=== PATIENT | female | born 1955 | race Caucasian/White ===

== ENCOUNTER 2024-11-11 09:14 | Observation (INO) | payer MEDICARE ==
[2024-11-11] VITALS (11 sets, daily range): BP systolic 123–138; BP diastolic 59–73; PULSE 70–85; RESP 17–18; TEMP 96.8–98.5; O2SAT 99–100
[~2024-11-11] VITALS: Ht 160 cm; Wt 72.1 kg
[2024-11-11 09:35] LABS: BASOPHILS % 0.4 % (0.0-1.0); EOSINOPHILS # (AUTO) 0.2 (0.0-0.4); EOSINOPHILS % 2.9 % (0.0-6.0); HEMATOCRIT 32.1 % (34.2-44.1); HEMOGLOBIN 9.2 g/dL (12.0-16.0); LYMPHOCYTES # (AUTO) 1.2 (1.0-3.2); LYMPHOCYTES % 16.5 % (18.0-39.1); MEAN CORPUSCULAR HEMOGLOBIN 25.7 pg (28-32); MEAN CORPUSCULAR HGB CONC 28.7 g/dL (31-35); MEAN CORPUSCULAR VOLUME 89.7 fL (81-99); MONOCYTES # (AUTO) 0.5 (0.2-0.8); MONOCYTES % 7.5 % (4.4-11.3); NEUTROPHILS # (AUTO) 5.2 (2.1-6.9); NEUTROPHILS % 72.6 % (38.7-80.0); PLATELET COUNT 298 x10e3/uL (140-360); RED BLOOD COUNT 3.58 x10e6/uL (3.6-5.1); RED CELL DISTRIBUTION WIDTH 15.8 % (11.7-14.4); WHITE BLOOD COUNT 7.16 x10e3/uL (4.8-10.8)
[2024-11-11] MEDS: SODIUM CHLORIDE 0.9% 1000ML 1,000 ML IV STA (09:52)
[2024-11-11] MEDS: METOPROLOL TARTRATE 25 MG TAB PO ONE (09:52)
[2024-11-11] MEDS: ASPIRIN 81 MG CHEW TAB PO STA (09:52)
[2024-11-11 09:57] LABS: ALBUMIN 3.8 g/dL (3.5-5.0); ALBUMIN/GLOBULIN RATIO 1.3 (0.8-2.0); BILIRUBIN,TOTAL 0.5 mg/dL (0.2-1.2); CALCIUM 9.2 mg/dL (8.4-10.2); CREATININE, SERUM 0.98 mg/dL (0.57-1.11); TOTAL PROTEIN 6.8 g/dL (6.5-8.1)
[2024-11-11 10:09] LABS: INR 0.95; PARTIAL THROMBOPLASTIN TIME 27.3 seconds (23.8-35.5); PROTHROMBIN TIME 13.3 seconds (11.9-14.5)
[2024-11-11 10:16] LABS: THYROID STIMULATING HORMONE 1.35 uIU/mL (0.350-4.940); TROPONIN I 0.002 ng/mL (0-0.300)
[2024-11-11] MEDS ORDERED: IOPAMIDOL 370 MG/ML 100 ML INFUS..BTL INJ ONE (10:31)
[2024-11-11] MEDS ORDERED: SODIUM CHLORIDE 0.9% 100 ML ONE (10:31)
[2024-11-11] MEDS ORDERED: Morphine 2mg Syringe 2 MG/ML SYR IV PRN (11:15)
[2024-11-11] MEDS ORDERED: ONDANSETRON HCL INJ 2MG/ML 2ML 2 MG/ML VIAL IV PRN (11:15)
[2024-11-11] MEDS ORDERED: NITROGLYCERIN 0.4 MG SUBL SL PRN (11:15)
[2024-11-11] MEDS ORDERED: LABETALOL HCL 5 MG/ML 20ML VIAL IV PRN (12:00)
[2024-11-11] MEDS ORDERED: ACETAMINOPHEN 325 MG TAB PO PRN (12:00)
[2024-11-11] MEDS ORDERED: POLYETHYLENE GLYCOL 3350 17 GM PACK PO PRN (12:00)
[2024-11-11 12:10] LABS: PHOSPHORUS 3.6 MG/DL (2.3-4.7)
[2024-11-11 12:32] LABS: FREE T4 (FREE THYROXINE) 0.71 ng/dL (0.8-1.8)
[2024-11-11 13:15] LABS: CHOL/HDL RATIO 2.2 (3.0-3.6)
[2024-11-11 13:36] LABS: FERRITIN 4.18 ng/mL (4.63-204.00)
[2024-11-11] MEDS ORDERED: AMLODIPINE BESY10 MG PO (15:00)
[2024-11-11] MEDS ORDERED: ATORVASTATIN CA20 MG PO (15:00)
[2024-11-11] MEDS: ASCORBIC ACID 500 MG TAB PO SCH (16:52)
[2024-11-11] MEDS: IRON SUCROSE 100 MG in SODIUM CHLORIDE 0.9% 100 ML IV SCH (16:53)
[2024-11-11] MEDS: MULTIVITAMINS/MINERALS TAB PO SCH (16:53)
[2024-11-11] MEDS: DOCUSATE SODIUM 100 MG CAP PO SCH (16:53)
[2024-11-11] MEDS: CYANOCOBALAMIN INJ 1,000 MCG/ML VIAL IM SCH (16:54)
[2024-11-11] MEDS: SODIUM CHLORIDE 0.9% 250ML 250 ML ONE (17:12)
[2024-11-11] MEDS: ATORVASTATIN 20 MG TAB PO SCH (21:36)
[2024-11-11] MEDS: METOPROLOL TARTRATE 25 MG TAB PO SCH (21:37)
[2024-11-12 00:04] VITALS: BP 117/51; PULSE 72; RESP 18; TEMP 97.9; O2SAT 100
[2024-11-12 04:00] VITALS: BP 125/71; PULSE 70; RESP 18; TEMP 96.4; O2SAT 100
[2024-11-12 05:06] LABS: BASOPHILS % 0.3 % (0.0-1.0); EOSINOPHILS # (AUTO) 0.3 (0.0-0.4); EOSINOPHILS % 3.5 % (0.0-6.0); HEMATOCRIT 29.2 % (34.2-44.1); HEMOGLOBIN 8.7 g/dL (12.0-16.0); LYMPHOCYTES # (AUTO) 0.9 (1.0-3.2); LYMPHOCYTES % 10.8 % (18.0-39.1); MEAN CORPUSCULAR HEMOGLOBIN 25.5 pg (28-32); MEAN CORPUSCULAR HGB CONC 29.8 g/dL (31-35); MEAN CORPUSCULAR VOLUME 85.6 fL (81-99); MONOCYTES # (AUTO) 0.4 (0.2-0.8); MONOCYTES % 4.7 % (4.4-11.3); NEUTROPHILS # (AUTO) 6.4 (2.1-6.9); NEUTROPHILS % 80.3 % (38.7-80.0); PLATELET COUNT 250 x10e3/uL (140-360); RED BLOOD COUNT 3.41 x10e6/uL (3.6-5.1); RED CELL DISTRIBUTION WIDTH 15.9 % (11.7-14.4); WHITE BLOOD COUNT 7.95 x10e3/uL (4.8-10.8)
[2024-11-12 05:50] LABS: ALBUMIN 3.6 g/dL (3.5-5.0); ALBUMIN/GLOBULIN RATIO 1.3 (0.8-2.0); ANION GAP 14.2 mmol/L (8-16); BILIRUBIN,TOTAL 0.6 mg/dL (0.2-1.2); CALCIUM 9.2 mg/dL (8.4-10.2); CREATININE, SERUM 0.84 mg/dL (0.57-1.11); POTASSIUM 4.2 mmol/L (3.5-5.1); TOTAL PROTEIN 6.3 g/dL (6.5-8.1)
[2024-11-12 06:34] LABS: TROPONIN I 0.01 ng/mL (0-0.300)
[2024-11-12 08:00] VITALS: BP 132/66; PULSE 67; RESP 18; TEMP 98.3; O2SAT 99
[2024-11-12] MEDS: ASPIRIN 81 MG ENTERIC COATED PO SCH (09:00)
[2024-11-12] MEDS: AMLODIPINE BESYLATE 10 MG TAB PO SCH (09:00)
[2024-11-12 10:36] VITALS: BP 132/66; PULSE 67
== END 2024-11-12 11:05 | disposition home or self-care (01) ==
LOC: ER 09:18 → ERHOLD 11:13 → MED/SURG2 12:00
PROVIDERS: ADMIT Internal Medicine; ATTEND Internal Medicine
DX: R07.89 Other chest pain (principal); R00.2 Palpitations; F43.22 Adjustment disorder with anxiety; I10 Essential (primary) hypertension; E78.5 Hyperlipidemia, unspecified; R42 Dizziness and giddiness; D50.9 Iron deficiency anemia, unspecified; R79.1 Abnormal coagulation profile; E04.9 Nontoxic goiter, unspecified; M17.0 Bilateral primary osteoarthritis of knee; I35.8 Other nonrheumatic aortic valve disorders; I07.1 Rheumatic tricuspid insufficiency; R94.31 Abnormal electrocardiogram [ECG] [EKG]; Z85.3 Personal history of malignant neoplasm of breast; Z90.12 Acquired absence of left breast and nipple; Z92.3 Personal history of irradiation; Z79.899 Other long term (current) drug therapy
CPT/HCPCS: 36415 ×2; 70450; 71045; 71260; 80053 ×2; 80061; 82550 ×2; 82607; 82728; 82746; 83036; 83540; 83735; 83880; 84100; 84439; 84443; 84466; 84484 ×2; 85025 ×2; 85045; 85379; 85610; 85730; 93005; 93306; 94799; 99284; G0378 ×2; J1756; J2470 ×2; J3420 ×2; J7030; J7050 ×2; Q9967

== ENCOUNTER → 2025-06-06 | Outpatient (RCR) | payer MEDICARE ==
[~2025-06-06] MED LIST: AMLODIPINE BESY10 MG PO; ATORVASTATIN CA20 MG PO
== END ==
LOC: WCC 06-04 12:41
PROVIDERS: ATTEND Nurse Practitioner Family
DX: T81.89XA Other complications of procedures, not elsewhere classified, initial encounter (principal)
CPT/HCPCS: 87071; 87075; 87186; 87205

== ENCOUNTER 2025-06-19 11:30 | Outpatient (RCR) | payer MEDICARE | END 2025-07-01 07:48 | disposition home or self-care (01) | LOC: WCC 11:30 | PROVIDERS: ATTEND Nurse Practitioner Family | DX: T81.89XA Other complications of procedures, not elsewhere classified, initial encounter (principal) ==